=== PATIENT | female | born 1995 | race Caucasian/White ===

== ENCOUNTER 2016-12-22 18:43 | Emergency (ER) | payer OTHER ==
--- NOTE | 2016-12-22 19:12 | ER Document Report ---
ED Medical Screen (RME) - General Chief Complaint: Fever Stated Complaint: FEVER,COUGH,SORE THROAT,DIZZY Time seen by provider: 19:10 Mode of Arrival: Ambulatory Information source: Patient Notes: 21-year-old female presents to ED for fevers sore throat and cough for the 2 days. She states her fever was 103 5 this afternoon and she took ibuprofen and Tylenol Now 98.2. She had strep 2 weeks ago. Last menstrual period 12/22/2016 I have greeted and performed a rapid initial assessment of this patient. A comprehensive ED assessment and evaluation of the patient, analysis of test results and completion of medical decision making process will be conducted by an additional ED providers. TRAVEL OUTSIDE OF THE [place] IN LAST 30 DAYS: No - Related Data Allergies/Adverse Reactions: Cephalosporins Allergy (Verified 03/18/16 09:26) Sulfa (Sulfonamide Antibiotics) Allergy (Verified 03/18/16 09:26) cillins Allergy (Uncoded 03/18/16 09:26) Past Medical History Past Surgical History: Reports: Hx Tonsillectomy - Immunizations Hx Diphtheria, Pertussis, Tetanus Vaccination: Yes Physical Exam - Vital signs Vitals: Temp Pulse Resp BP Pulse Ox 98.2 F 106 H 16 122/77 100 12/22/16 19:05 12/22/16 19:05 12/22/16 19:05 12/22/16 19:05 12/22/16 19:05 Course - Vital Signs Vital signs: Temp Pulse Resp BP Pulse Ox 98.2 F 106 H 16 122/77 100 12/22/16 19:05 12/22/16 19:05 12/22/16 19:05 12/22/16 19:05 12/22/16 19:05
[2016-12-22 21:13] LABS: APPEARANCE,URINE CLEAR; BILIRUBIN,URINE NEGATIVE (NEGATIVE); GLUCOSE, URINE NEGATIVE (NEGATIVE); KETONES,URINE NEGATIVE (NEGATIVE); LEUKOCYTE ESTERASE,URINE NEGATIVE (NEGATIVE); NITRITE,URINE NEGATIVE (NEGATIVE); PROTEIN,URINE NEGATIVE (NEGATIVE); URINE SPECIFIC GRAVITY 1.016; UROBILINOGEN,URINE NEGATIVE mg/dL (<2.0)
--- NOTE | 2016-12-23 01:12 | ER Document Report ---
ED ENT - General Chief Complaint: Cold Symptoms Stated Complaint: FEVER,COUGH,SORE THROAT,DIZZY Time seen by provider: 01:11 Mode of Arrival: Ambulatory TRAVEL OUTSIDE OF THE [place] IN LAST 30 DAYS: No - HPI Patient complains to provider of: Throat problem Onset: Yesterday Onset/Duration: Persistent Quality of pain: Achy Severity: Mild Location of pain: Throat Associated symptoms: Chills, Congestion, Cough, Fever, Runny nose, Sore throat Similar symptoms previously: Yes Recently seen / treated by doctor: Yes Notes: Patient is a 21-year-old female presenting to the emergency room complaining of fever, nausea, cough, runny nose, sore throat, symptoms have been going on since yesterday, she denies any sick contacts, no vomiting or diarrhea, she has a cough productive of whitish colored mucus, states she was recently treated for strep throat infection - Related Data Allergies/Adverse Reactions: Cephalosporins Allergy (Verified 03/18/16 09:26) Sulfa (Sulfonamide Antibiotics) Allergy (Verified 03/18/16 09:26) cillins Allergy (Uncoded 03/18/16 09:26) Past Medical History - General Information source: Patient - Social History Smoking Status: Never Smoker Family History: Reviewed & Not Pertinent Patient has suicidal ideation: No Patient has homicidal ideation: No Renal/ Medical History: Denies: Hx Peritoneal Dialysis Past Surgical History: Reports: Hx Tonsillectomy - Immunizations Hx Diphtheria, Pertussis, Tetanus Vaccination: Yes Review of Systems - Review of Systems Constitutional: Fever EENT: See HPI Cardiovascular: No symptoms reported Respiratory: See HPI Gastrointestinal: Nausea Genitourinary: No symptoms reported Female Genitourinary: No symptoms reported Musculoskeletal: No symptoms reported Skin: No symptoms reported Hematologic/Lymphatic: No symptoms reported Neurological/Psychological: No symptoms reported -: Yes All other systems reviewed and negative Physical Exam - Vital signs Vitals: Temp Pulse Resp BP Pulse Ox 98.2 F 106 H 16 122/77 100 12/22/16 19:05 12/22/16 19:05 12/22/16 19:05 12/22/16 19:05 12/22/16 19:05 Interpretation: Normal - General General appearance: Appears well, Alert - HEENT Head: Normocephalic, Atraumatic Eyes: Normal Conjunctiva: Normal Extraocular movements intact: Yes Eyelashes: Normal Pupils: PERRL Ears: Normal External canal: Normal Tympanic membrane: Normal Sinus: Normal Nasal: Normal Mouth/Lips: Normal Mucous membranes: Normal Pharynx: Normal Neck: Normal - Respiratory Respiratory status: No respiratory distress Chest status: Nontender Breath sounds: Normal Chest palpation: Normal - Cardiovascular Rhythm: Regular Heart sounds: Normal auscultation Murmur: No - Abdominal Inspection: Normal Distension: No distension Bowel sounds: Normal Tenderness: Nontender Organomegaly: No organomegaly - Back Back: Normal, Nontender - Extremities General upper extremity: Normal inspection, Nontender, Normal color, Normal ROM , Normal temperature General lower extremity: Normal inspection, Nontender, Normal color, Normal ROM , Normal temperature, Normal weight bearing. No: Naomi's sign - Neurological Neuro grossly intact: Yes Cognition: Normal Orientation: AAOx4 Paige Coma Scale Eye Opening: Spontaneous Paige Coma Scale Verbal: Oriented Paige Coma Scale Motor: Obeys Commands Paige Coma Scale Total: 15 Speech: Normal Motor strength normal: LUE, RUE, LLE, RLE Sensory: Normal - Psychological Associated symptoms: Normal affect, Normal mood - Skin Skin Temperature: Warm Skin Moisture: Dry Skin Color: Normal Course - Re-evaluation Re-evalutation: 12/23/16 02:20 Physical exam findings unremarkable, urinalysis and rapid strep test negative, patient informed of these findings, symptoms are consistent with viral upper respiratory illness, she was provided with antinausea medication and advised to rest, take Tylenol or Motrin, drink plenty fluids and follow up with her primary care provider, or return if symptoms worsen, patient acknowledges understanding and agreement with this plan - Vital Signs Vital signs: Temp Pulse Resp BP Pulse Ox 98.8 F 98 16 123/79 99 12/23/16 01:32 12/23/16 01:32 12/23/16 01:32 12/23/16 01:32 12/23/16 01:32 - Laboratory Laboratory results interpreted by me: 12/22/16 20:45 Urine Blood LARGE H Discharge - Discharge Clinical Impression: Viral upper respiratory illness Condition: Stable Disposition: HOME, SELF-CARE Instructions: Acetaminophen, Fever ([facility]), Upper Respiratory Illness ([facility]), Viral Syndrome ([facility]), Ibuprofen (General) ([facility]) Additional Instructions: Drink plenty of fluids. Tylenol or Motrin as needed for fever. Follow-up with your shorer in one to 2 days. Return to the emergency room immediately if symptoms worsen or any additional concerns. Forms: Return to Work
[2016-12-23] MEDS ORDERED: ONDANSETRON ODT 4 MG TAB (6 TAB/DSPK) PO PRN (01:13)
[2016-12-23 01:33] VITALS: BP 123/79
== END 2016-12-23 01:33 | disposition home or self-care (01) ==
LOC: ER 18:43
DX: J06.9 Acute upper respiratory infection, unspecified (principal); J02.9 Acute pharyngitis, unspecified; R50.9 Fever, unspecified; R42 Dizziness and giddiness; Z88.3 Allergy status to other anti-infective agents; Z88.2 Allergy status to sulfonamides; Z88.0 Allergy status to penicillin
CPT/HCPCS: 81001; 87070; 87077; 87880; 99283